=== PATIENT | female | born 1975 | race Caucasian/White ===

== ENCOUNTER 2017-11-17 19:14 | Emergency (ER) | payer MEDICAID ==
[~2017-11-17] VITALS: Ht 157.5 cm; Wt 204.1 kg
[~2017-11-17 19:14] MED LIST: AZIT250T PO; CEPH-568 PO; FAMO20TA98 PO; IBUP-1969 PO; IPRA3AMP9 INH; LOVI40 SQ; RANI-362 PO
[2017-11-17 19:22] VITALS: BP_SYST 166
[2017-11-17 20:19] LABS: BASOPHILS % (AUTO) 0.5 % (0.0-2.0); EOSINOPHILS # (AUTO) 0.2 K/uL (0.0-0.4); EOSINOPHILS % (AUTO) 2.1 % (0.0-4.0); HEMATOCRIT 37.9 % (36-48); HEMOGLOBIN 12.6 g/dL (12.0-16.0); LYMPHOCYTES # (AUTO) 2.3 K/uL (1.0-5.5); LYMPHOCYTES % (AUTO) 27.6 % (20.5-51.5); MEAN CORPUSCULAR HEMOGLOBIN 29 pg (27-31); MEAN CORPUSCULAR HGB CONC 33 % (32-36); MEAN CORPUSCULAR VOLUME 88 fL (79.0-98.0); MONOCYTES # (AUTO) 0.5 K/uL (0.0-1.0); MONOCYTES % (AUTO) 5.7 % (1.7-9.3); NEUTROPHILS # (AUTO) 5.2 K/uL (1.8-7.7); NEUTROPHILS % (AUTO) 64.1 % (40.0-70.0); PLATELET COUNT (AUTO) 299 K/uL (130-430); RED CELL DISTRIBUTION WIDTH 13.9 % (9.0-15.0); WHITE BLOOD COUNT (AUTO) 8.2 K/uL (4.8-10.8)
[2017-11-17 20:28] LABS: CALCIUM 8.8 mg/dL (8.4-11.0); CREATININE 0.72 mg/dL (0.55-1.30)
[2017-11-17 20:30] LABS: ALBUMIN 2.6 g/dL (3.4-4.8); TOTAL BILIRUBIN 0.2 mg/dL (0.0-1.0)
[2017-11-17] MEDS ORDERED: cefTRIAXone 1 GM IVPB PREMIX 50 ML IV ONE (21:15)
[2017-11-17] MEDS ORDERED: HYDROcodone/ACETAMIN 5-325 MG TAB (NORCO/ VICODIN) PO ONE (21:15)
[2017-11-17 21:53] VITALS: BP_SYST 153
== END 2017-11-17 21:49 | disposition home or self-care (01) ==
LOC: SED 19:14
DX: L03.116 Cellulitis of left lower limb (principal); I10 Essential (primary) hypertension; J44.9 Chronic obstructive pulmonary disease, unspecified; Z79.899 Other long term (current) drug therapy
CPT/HCPCS: 36415; 80053; 85025; 87040; 93005; 96365; 99285; J0696

== ENCOUNTER 2017-12-01 13:32 | Emergency (ER) | payer MEDICAID ==
[~2017-12-01] VITALS: Ht 157.5 cm; Wt 204.1 kg
[2017-12-01 14:00] VITALS: BP_SYST 151
[2017-12-01] MEDS ORDERED: MORPHINE 4 MG/ML INJ. SYRINGE IM ONE (15:30)
[2017-12-01 22:53] VITALS: BP_SYST 146
== END 2017-12-01 22:53 | disposition home or self-care (01) ==
LOC: SED 13:32
DX: M79.605 Pain in left leg (principal); E66.01 Morbid (severe) obesity due to excess calories; J44.9 Chronic obstructive pulmonary disease, unspecified; K21.9 Gastro-esophageal reflux disease without esophagitis; Z68.45 Body mass index [BMI] 70 or greater, adult; Z79.899 Other long term (current) drug therapy
CPT/HCPCS: 96372; 99283; J2270

== ENCOUNTER 2018-09-23 17:15 | Emergency (ER) | payer MEDICAID ==
[~2018-09-23] VITALS: Ht 157.5 cm; Wt 204.1 kg
[~2018-09-23 17:15] MED LIST changes: -AZIT250T PO; +FAMO-132 PO; -FAMO20TA98 PO; +FURO-149 PO; +POTA10TA15 PO; +PRED20TA PO
[2018-09-23 17:25] VITALS: BP_SYST 113
--- NOTE | 2018-09-23 17:25 | NUR ---
Patient to ER bed 7 to gown for evaluation. Side rails up. Assumed care.
--- NOTE | 2018-09-23 17:25 | NUR ---
Patient arrived via POV, with mother, AAOx4, and ambulatory with weak gait. Patient uses wheelchair for mobility. Patient c/c of shortness of breath, bilateral leg apin, and bilateral feet and heel pain. Patient states history of COPD, Asthma, Bilateral DVT, Cellulitis, DM (no medications taken), and she is a smoker of 1/2 pack/day. Patient denies fever, and vomiting. Positive for diarrhea, nausea, and dizziness. Patient states she is homeless and has been staying at [facility] temporarily, but has ran out of money and she is concerned regarding chcf. Patient states LMP was 08/29. Patient placed in gown and on cardiac cath technician. Will continue to follow up and monitor.
--- NOTE | 2018-09-23 17:27 | NUR ---
ER at bedside examining patient.
[2018-09-23] MEDS ORDERED: LEVOFLOXACIN 500 MG/D5W 100 ML IV ONE (17:45)
[2018-09-23] MEDS ORDERED: ALBUTEROL SULFATE 0.083% 2.5 MG/3 ML VIAL.NEB INH ONE (17:45)
[2018-09-23 18:26] LABS: BILIRUBIN,URINE NEGATIVE (NEGATIVE); BLOOD, URINE NEGATIVE (NEGATIVE); CLARITY/URINE HAZY (CLEAR); COLOR,URINE YELLOW (YELLOW); GLUCOSE,URINE NEGATIVE (NEGATIVE); KETONES,URINE NEGATIVE (NEGATIVE); NITRITE, URINE POSITIVE (NEGATIVE); PROTEIN URINE TRACE (NEGATIVE); UROBILINOGEN,URINE 0.2 (0.2-1.0)
[2018-09-23 18:32] LABS: LEUKOCYTE ESTERASE ,URINE 1+ (NEGATIVE)
[2018-09-23 18:33] LABS: BACTERIA,URINE MANY /HPF (None Seen); RBC,URINE NONE SEEN /HPF (0-3)
[2018-09-23 18:34] LABS: MUCUS,URINE None Seen /LPF (None Seen)
[2018-09-23] MEDS ORDERED: cefTRIAXone 1 GM VIAL IM ONE (19:30)
--- NOTE | 2018-09-23 19:55 | NUR ---
SHAWNEE Hess at bedside examining patient.
[2018-09-23 20:00] LABS: HEMATOCRIT 44.3 % (36-48); HEMOGLOBIN 14.5 g/dL (12.0-16.0); MEAN CORPUSCULAR VOLUME 90 fL (79.0-98.0); RED BLOOD CELL COUNT(AUTO) 4.91 MIL/uL (4.2-6.2); WHITE BLOOD COUNT (AUTO) 9.9 K/uL (4.8-10.8)
[2018-09-23 20:01] LABS: BASOPHILS # (AUTO) 0.1 K/uL (0.0-0.2); BASOPHILS % (AUTO) 0.9 % (0.0-2.0); EOSINOPHILS # (AUTO) 0.1 K/uL (0.0-0.4); EOSINOPHILS % (AUTO) 1.3 % (0.0-4.0); LYMPHOCYTES # (AUTO) 2.6 K/uL (1.0-5.5); LYMPHOCYTES % (AUTO) 26.5 % (20.5-51.5); MEAN CORPUSCULAR HEMOGLOBIN 30 pg (27-31); MEAN CORPUSCULAR HGB CONC 33 % (32-36); MONOCYTES # (AUTO) 0.6 K/uL (0.0-1.0); MONOCYTES % (AUTO) 6.4 % (1.7-9.3); NEUTROPHILS # (AUTO) 6.4 K/uL (1.8-7.7); NEUTROPHILS % (AUTO) 64.9 % (40.0-70.0); PLATELET COUNT (AUTO) 279 K/uL (130-430); RED CELL DISTRIBUTION WIDTH 13.8 % (9.0-15.0)
[2018-09-23 20:06] LABS: CALCIUM 8.3 mg/dL (8.4-11.0); CREATININE 0.81 mg/dL (0.55-1.30); INR 0.9 (0.8-1.2); POTASSIUM 3.3 mmol/L (3.5-5.1); PROTHROMBIN TIME 9.5 SECS (9.5-12.5)
[2018-09-23 20:11] LABS: ALBUMIN 2.7 g/dL (3.4-4.8); TOTAL BILIRUBIN 0.2 mg/dL (0.0-1.0)
[2018-09-23] MEDS ORDERED: cloNIDine HCL 0.1 MG TABLET PO ONE (20:15)
[2018-09-23 21:50] VITALS: BP_SYST 158
--- NOTE | 2018-09-23 21:50 | NUR ---
Patient given written and verbal discharge instructions and verbalizes understanding. ER MD discussed with patient the results and treatment provided. Patient in stable condition. ID arm band removed. IV catheter removed intact and dressing applied, no active bleeding. Rx of Macrobid given. Patient educated on pain management and to follow up with PMD. Pain Scale 0/10. Opportunity for questions provided and answered. Medication side effect fact sheet provided.
[2018-09-24] MEDS ORDERED: RANI150T8 PO ×2 (10:12→10:19)
[2018-09-24] MEDS ORDERED: IBUP-1970 PO (10:19)
[2018-09-24] MEDS ORDERED: NITR-85 PO (10:19)
== END 2018-09-23 21:50 | disposition home or self-care (01) ==
LOC: SED 17:15
DX: F41.9 Anxiety disorder, unspecified (principal); N39.0 Urinary tract infection, site not specified; R06.02 Shortness of breath; E87.6 Hypokalemia; I10 Essential (primary) hypertension; E66.01 Morbid (severe) obesity due to excess calories; J44.9 Chronic obstructive pulmonary disease, unspecified; K21.9 Gastro-esophageal reflux disease without esophagitis; E11.9 Type 2 diabetes mellitus without complications; Z79.899 Other long term (current) drug therapy; Z68.45 Body mass index [BMI] 70 or greater, adult
CPT/HCPCS: 36415; 71045; 80053; 81000; 83605; 83880; 84484; 85025; 85610; 87040; 87086; 87186; 93005; 93970; 94640; 96365; 96372; 99284; J0696; J1956; J7613; J7030

== ENCOUNTER 2018-10-26 09:30 | Emergency (ER) | payer MEDICAID ==
[~2018-10-26] VITALS: Ht 157.5 cm; Wt 203.7 kg
[2018-10-26 09:30] VITALS: BP_SYST 153
[~2018-10-26 09:30] MED LIST changes: +IBUP-1970 PO; +LEVO250T2 PO; +NITR-85 PO; +RANI150T8 PO
--- NOTE | 2018-10-26 09:30 | NUR ---
BIB CARE, Placed in room 02. Placed on loan auditor, blood pressure machine and pulse oximeter. To gown for exam. Side rails up. Report given to MICHELLE Beck.
--- NOTE | 2018-10-26 09:40 | NUR ---
ER Dr. Gomez at bedside examining patient.
--- NOTE | 2018-10-26 10:05 | NUR ---
Patient is awake, alert, and oriented x4. Patient is complaining of swollen legs since yesterday. Patient presents with bilateral lower edema. Patient reports a history of COPD, osteoarthritis, edema, DVT, CHF, cellulitis, severe sleep apnea, asthma, DM.
[2018-10-26 10:40] LABS: HEMATOCRIT 43.8 % (36-48); HEMOGLOBIN 13.9 g/dL (12.0-16.0); MEAN CORPUSCULAR HEMOGLOBIN 29 pg (27-31); MEAN CORPUSCULAR HGB CONC 32 % (32-36); MEAN CORPUSCULAR VOLUME 91 fL (79.0-98.0); PLATELET COUNT (AUTO) 267 K/uL (130-430); RED CELL DISTRIBUTION WIDTH 47.7 % (9.0-15.0); WHITE BLOOD COUNT (AUTO) 8.4 K/uL (4.8-10.8)
[2018-10-26 10:41] LABS: BASOPHILS % (AUTO) 0.3 % (0.0-2.0); EOSINOPHILS # (AUTO) 0.1 K/uL (0.0-0.4); EOSINOPHILS % (AUTO) 1.3 % (0.0-4.0); LYMPHOCYTES # (AUTO) 2.1 K/uL (1.0-5.5); LYMPHOCYTES % (AUTO) 24.5 % (20.5-51.5); MONOCYTES # (AUTO) 0.3 K/uL (0.0-1.0); MONOCYTES % (AUTO) 4.1 % (1.7-9.3); NEUTROPHILS # (AUTO) 5.9 K/uL (1.8-7.7); NEUTROPHILS % (AUTO) 69.8 % (40.0-70.0)
[2018-10-26 10:46] LABS: ANION GAP 2 (5-15); CHLORIDE 104 mmol/L (98-107); CREATININE 0.78 mg/dL (0.55-1.30); GLUCOSE 178 mg/dL (70-99); POTASSIUM 4.1 mmol/L (3.5-5.1); SODIUM SERUM 138 mmol/L (136-145); UREA NITROGEN, BLOOD 13 mg/dL (8-21)
[2018-10-26 10:47] LABS: INR 0.9 (0.8-1.2); PROTHROMBIN TIME 9.6 SECS (9.5-12.5)
[2018-10-26 10:49] LABS: GFR AFRICAN AMERICAN 105 mL/min (>90)
[2018-10-26 11:03] LABS: ALANINE AMINOTRANSFERASE 24 U/L (12-78); ALBUMIN 2.7 g/dL (3.4-4.8); ASPARTATE AMINOTRANSFERASE 16 U/L (10-37); FREE T4 (FREE THYROXINE) 0.7 ng/dL (0.6-1.6); TOTAL BILIRUBIN 0.3 mg/dL (0.0-1.0)
[2018-10-26 11:06] LABS: ALCOHOL, BLOOD < 3 mg/dL (<10)
[2018-10-26 13:32] VITALS: BP_SYST 152
[2018-10-26 13:43] LABS: BILIRUBIN,URINE NEGATIVE (NEGATIVE); BLOOD, URINE NEGATIVE (NEGATIVE); CLARITY/URINE CLEAR (CLEAR); COLOR,URINE YELLOW (YELLOW); GLUCOSE,URINE NEGATIVE (NEGATIVE); KETONES,URINE NEGATIVE (NEGATIVE); LEUKOCYTE ESTERASE ,URINE NEGATIVE (NEGATIVE); NITRITE, URINE NEGATIVE (NEGATIVE); PROTEIN URINE NEGATIVE (NEGATIVE); UROBILINOGEN,URINE 0.2 (0.2-1.0)
[2018-10-26 13:52] LABS: BARBITURATE, URINE NEGATIVE (NEG <=200); BENZODIAZEPINE, URINE NEGATIVE (NEG <=150); CANNABINOID, URINE NEGATIVE (NEG <=50); COCAINE, URINE NEGATIVE (NEG <=150); METHAMPHETAMINES SCREEN,URINE NEGATIVE (NEG <=500); OPIATE, URINE NEGATIVE (NEG <=100); PHENCYCLIDINE SCREEN,URINE NEGATIVE (NEG <=25); UR TRICYCLIC ANTIDEPRESSANTS NEGATIVE (NEG <=300); URINE AMPHETAMINE NEGATIVE (NEG <=500); URINE METHADONE NEGATIVE (NEG <=200); URINE OXYCODONE SCREEN NEGATIVE (NEG <=100); URINE PROPOXYPHENE SCREEN NEGATIVE (NEG <=300)
--- NOTE | 2018-10-26 14:10 | NUR ---
Saige EDITOR PRODUCER asked patient to keep down her phone conversation as she was yelling and cursing to her ex-. Was heard saying, "You're not my fucking anymore." After being asked to keep it down patient stated Saige was a "conceited face."
--- NOTE | 2018-10-26 14:16 | NUR ---
Patient started cussing. Stating she is leaving without discharge paperwork. Yelled, "Thanks for the hitesh prescription doctor!" Informed her that we were waiting on paper work, she stated she was leaving without anything, "as usual." Patient refused to let me remove her armband stating, "Don't fucking touch me!" Also stating, "I know the director! He's my personal friend. I'm going to call him!" Patient left the ER without any paperwork and her armband.
== END 2018-10-26 14:16 | disposition home or self-care (01) ==
LOC: SED 09:30
DX: L03.116 Cellulitis of left lower limb (principal); L03.115 Cellulitis of right lower limb; E66.01 Morbid (severe) obesity due to excess calories; J45.909 Unspecified asthma, uncomplicated; E11.9 Type 2 diabetes mellitus without complications; I10 Essential (primary) hypertension; J44.9 Chronic obstructive pulmonary disease, unspecified; F17.210 Nicotine dependence, cigarettes, uncomplicated; Z79.899 Other long term (current) drug therapy; Z68.45 Body mass index [BMI] 70 or greater, adult
CPT/HCPCS: 36415; 71045; 80053; 80307; 81003; 82140; 83605; 83880; 84439; 84484; 85025; 85610; 87040; 93005; 93970; 99284; G0482

== ENCOUNTER 2019-02-09 13:07 | Emergency (ER) | payer MEDICAID ==
[~2019-02-09] VITALS: Ht 160 cm; Wt 199.1 kg
[2019-02-09 13:13] VITALS: BP_SYST 153
--- NOTE | 2019-02-09 13:18 | NUR ---
Patient triaged and placed in waiting room. Patient appears in no acute distress at this time. Accompanied by self, awaiting available bed, and MD notified of need for MSE.
--- NOTE | 2019-02-09 13:45 | NUR ---
PT SCREAMING LOUDLY ON THE PHONE THAT SHE DOESN NOT WANT TO WAIT, EXPLAINED TO PT THAT WE DO NOT HAVE ANY BEDS. PT YELLING, NO DISTRESS NOTED. SPEAKING/YELLING FULL SENTENCES.
--- NOTE | 2019-02-09 13:52 | NUR ---
PT LEFT WITHOUT BEING SEEN BY AN MD
--- NOTE | 2019-02-09 13:58 | NUR ---
CALL RECEIVED BY MOTHER OF PT AND MOTHER STATES THAT PT NEEDS TO BE BROUGHT INTO THE HOSPITAL RIGHT AWAY, EXPLAINED TO MOTHER THAT PT LEFT ON HER OWN WILL AND I CAN NOT BRING HER BACK IN THE HOSPITAL. EXPLAINED TO MOTHER THAT I DO NOT HAVE AN OPEN BED AT THIS TIME AND THAT PT WAS SCREAMING LOUDLY, IN NO DISTRESS AT THIS TIME. MOTHER UNDERSTOOD AND WANTED TO KNOW WHY WE BROUGHT BACK PATIENTS BEFORE HER DAUGHTER, EXPLAINED TO MOTHER THAT I WILL NOT BE SHARING ANY INFORMATION RE OTHER PTS DX OR ISSUES DUE TO HIPPA VIOLATIONS, MOTHER STATES SHE UNDERSTANDS AND WILL TALK WITH HER DAUGHTER.
== END 2019-02-09 13:52 | disposition left against medical advice (07) ==
LOC: SED 13:07
DX: R06.00 Dyspnea, unspecified (principal); R06.02 Shortness of breath; M79.662 Pain in left lower leg; M79.661 Pain in right lower leg; Z53.21 Procedure and treatment not carried out due to patient leaving prior to being seen by health care provider

== ENCOUNTER 2023-01-05 16:29 | Inpatient (IN) | payer OTHER, MEDICAID ==
[~2023-01-05] VITALS: Ht 157.5 cm; Wt 177.1 kg
--- NOTE | 2023-01-05 16:33 | NUR ---
Placed in room 01 . Placed on box toe stitcher, blood pressure machine and pulse oximeter. To gown for exam. Side rails up. Report given to Berenice .
[2023-01-05 16:35] VITALS: BP_SYST 127
--- NOTE | 2023-01-05 16:35 | NUR ---
RECEIVED PT FROM MICHELLE AWAD. PT VIJI AYON FOR C/O SOB. PT ON R/A AT 96%. NO COUGH OR SOB NOTED. PT DESATURATES WITH ACTIVITY. PT NOW PLACED ON N/C AT 2LPM. O2 SAT. 94% AT THIS TIME. PT HAS HX OF COPD, USED HOME O2 OVER A YEAR AGO. ZELALEM 20 PLACED IN FIELD, FLUSHED AND PATENT. PT IS AAOX4. C/O NAUSEA. DISTAL PULSES NORMAL. SKIN INTACT. PT USED BEDSIDE COMMODE, URINE OBTAINED AND TAKEN TO LAB. PT PLACED ON MONITOR. SIDERAILS UP X2, DENIES PAIN.
--- NOTE | 2023-01-05 16:59 | NUR ---
DR. VACA AT BEDSIDE TO ASSESS PT.
[2023-01-05] MEDS ORDERED: IPRATROPIUM/ALBUTEROL SULFATE 3 ML AMPUL.NEB (DUONEB) INH ONE (17:15)
[2023-01-05 17:32] LABS: BASOPHILS # (AUTO) 0.1 K/uL (0.0-0.2); BASOPHILS % (AUTO) 0.4 % (0.0-2.0); EOSINOPHILS % (AUTO) 0.3 % (0.0-4.0); HEMATOCRIT 48.4 % (36-48); HEMOGLOBIN 15.7 g/dL (12.0-16.0); MEAN CORPUSCULAR HEMOGLOBIN 28 pg (27-31); MEAN CORPUSCULAR HGB CONC 33 % (32-36); MEAN CORPUSCULAR VOLUME 87 fL (79.0-98.0); MONOCYTES # (AUTO) 0.4 K/uL (0.0-1.0); MONOCYTES % (AUTO) 2.8 % (1.7-9.3); NEUTROPHILS # (AUTO) 13.3 K/uL (1.8-7.7); NEUTROPHILS % (AUTO) 89.5 % (40.0-70.0); PLATELET COUNT (AUTO) 240 K/uL (130-430); RED BLOOD CELL COUNT(AUTO) 5.56 MIL/uL (4.2-6.2); RED CELL DISTRIBUTION WIDTH 14.6 % (9.0-15.0); WHITE BLOOD COUNT (AUTO) 14.9 K/uL (4.8-10.8)
--- NOTE | 2023-01-05 17:32 | NUR ---
PT'S BREATHING TX COMPLETED.
[2023-01-05 17:46] LABS: ANION GAP 7 (5-15); CALCIUM 9.4 mg/dL (8.4-11.0); CHLORIDE 98 mmol/L (98-107); CREATININE 1.01 mg/dL (0.55-1.30); GFR AFRICAN AMERICAN 76 mL/min (>90); GLUCOSE 222 mg/dL (70-99); UREA NITROGEN, BLOOD 20 mg/dL (8-21)
[2023-01-05 17:53] LABS: ALANINE AMINOTRANSFERASE 20 U/L (12-78); ALBUMIN 3.2 g/dL (3.4-4.8); ASPARTATE AMINOTRANSFERASE 16 U/L (10-37); TOTAL BILIRUBIN 0.5 mg/dL (0.0-1.0)
[2023-01-05 18:07] LABS: PROTHROMBIN TIME 10.5 SECS (9.5-12.5)
[2023-01-05 18:13] LABS: BILIRUBIN,URINE NEGATIVE (NEGATIVE); BLOOD, URINE NEGATIVE (NEGATIVE); CLARITY/URINE CLEAR (CLEAR); COLOR,URINE YELLOW (YELLOW); GLUCOSE,URINE TRACE (NEGATIVE); KETONES,URINE NEGATIVE (NEGATIVE); LEUKOCYTE ESTERASE ,URINE TRACE (NEGATIVE); NITRITE, URINE NEGATIVE (NEGATIVE); PROTEIN URINE NEGATIVE (NEGATIVE); UROBILINOGEN,URINE 0.2 (0.2-1.0)
[2023-01-05 18:25] LABS: BACTERIA,URINE RARE /HPF (None Seen); RBC,URINE 0-3 /HPF (0-3); WBC,URINE 0-3 /HPF (0-3)
[2023-01-05] MEDS ORDERED: methylPREDNISolone SOD SUCC/PF 62.5 MG/ML VIAL IVP ONE (18:30)
--- NOTE | 2023-01-05 18:52 | NUR ---
URINE, COVID, FLU OBTAINED AND TAKEN TO LAB.
--- NOTE | 2023-01-05 18:53 | NUR ---
SOLUMEDROL 125MG IVP GIVEN.
--- NOTE | 2023-01-05 19:13 | NUR ---
ENDORSED PT TO MICHELLE CALL. ALL QUESTIONS AND CONCERNS ADDRESSED.
--- NOTE | 2023-01-05 19:31 | NUR ---
FIRST CONTACT WITH PT. ASSESSMENT COMPLETED. AWAITING ADDITIONAL EVAL AND ORDERS.
[2023-01-05] MEDS ORDERED: AZITHROMYCIN 500 MG in NS 250 ML IV ONE (19:45)
[2023-01-05] MEDS ORDERED: NACL 0.9% 1,000 ML IV ONE (19:45)
[2023-01-05] MEDS ORDERED: AZITHROMYCIN 500 MG/VIAL (ZITHROMAX) IV ONE ×2 (19:45→19:46)
[2023-01-05] MEDS ORDERED: cefTRIAXone 1 GM VIAL ONE (19:45)
[2023-01-05] MEDS ORDERED: guaiFENesin/DEXTROMETHORPHAN 10 ML UDC PO ONE (19:45)
[2023-01-05] MEDS ORDERED: cefTRIAXone 1 GM in D5W 50 ML IV ONE (19:45)
--- NOTE | 2023-01-05 20:53 | NUR ---
Patient will be admitted to care of [facility] . Admitted to TELE unit. Will go to room 110B . Belongings list completed. Complete and up to date summary report printed. SBAR report to be given at bedside TO MICHELLE VILLALOBOS with opportunity for questions.
--- NOTE | 2023-01-05 21:30 | NUR ---
Pt admitted to tele from ER. Pt is aox4, ambulatory with max assist, as she huses an assitive device at home to get around. Pt VSS, lungs are rhonchi at base. bowel sounds present last BM was 01/05. skin intact, denies pain, pt states she is hungry, instructed for her child 16yo to bring her food, BSC placed at bedside. pt has breathing treatments, but refused initial one at 2200. pt is non-compliant with breathing treatments. bed locked in the lowest position with call light in reach. Will continue to monitor pt.
--- NOTE | 2023-01-05 21:50 | NUR ---
Paged Dr. Quezada Nam
[2023-01-05 21:55] VITALS: BP_SYST 125
[2023-01-05] MEDS ORDERED: NALOXONE HCL 0.4 MG/ML AMP (NARCAN) IVP PRN ×2 (22:15)
[2023-01-05] MEDS ORDERED: ONDANSETRON HCL 4 MG/2 ML VIAL IVP PRN (22:15)
[2023-01-05] MEDS ORDERED: ACETAMINOPHEN 325 MG TABLET PO PRN (22:15)
[2023-01-05] MEDS ORDERED: HYDROcodone/ACETAMIN 5-325 MG TAB (NORCO/ VICODIN) PO PRN (22:15)
[2023-01-05] MEDS ORDERED: HYDROcodone/ACETAMIN 10-325 MG TAB PO PRN (22:15)
[2023-01-05] MEDS: ALBUTEROL SULFATE 0.083% 2.5 MG/3 ML VIAL.NEB INH SCH (22:57)
[2023-01-05] MEDS: IPRATROPIUM BROM 0.5 MG/2.5 ML VIAL.NEB (ATROVENT) INH SCH (22:57)
--- NOTE | 2023-01-05 23:10 | NUR ---
CONSULTATION PAGED/CALLED Reason for Consultation: Leukocytosis/pneumonia Person Who was Notified: exchange Consulting Physician: Thiago Mishra Svp Digital Sales Specialty: ID Ordering Physician: Dr. Dr. Pilar Browning
[2023-01-05 23:29] VITALS: BP_SYST 125
--- NOTE | 2023-01-06 02:51 | NUR ---
Consultation Paged Reason for Consultation: COPD, PNEUMONIA Was consult called: Y Person who was notified: Kiran Consulting Physician: Dr. Crawford Ordering Physician: Nam Lainez
[2023-01-06] MEDS: IPRATROPIUM BROM 0.5 MG/2.5 ML VIAL.NEB (ATROVENT) INH SCH ×5 (03:00→19:25)
[2023-01-06] MEDS: ALBUTEROL SULFATE 0.083% 2.5 MG/3 ML VIAL.NEB INH SCH ×5 (03:00→19:25)
[2023-01-06 05:09] LABS: BASOPHILS % (AUTO) 0.2 % (0.0-2.0); HEMATOCRIT 47.1 % (36-48); HEMOGLOBIN 15.1 g/dL (12.0-16.0); LYMPHOCYTES # (AUTO) 0.9 K/uL (1.0-5.5); LYMPHOCYTES % (AUTO) 5.1 % (20.5-51.5); MEAN CORPUSCULAR HEMOGLOBIN 28 pg (27-31); MEAN CORPUSCULAR HGB CONC 32 % (32-36); MEAN CORPUSCULAR VOLUME 88 fL (79.0-98.0); MONOCYTES # (AUTO) 0.1 K/uL (0.0-1.0); MONOCYTES % (AUTO) 0.5 % (1.7-9.3); NEUTROPHILS # (AUTO) 16.9 K/uL (1.8-7.7); NEUTROPHILS % (AUTO) 94.2 % (40.0-70.0); PLATELET COUNT (AUTO) 233 K/uL (130-430); RED BLOOD CELL COUNT(AUTO) 5.36 MIL/uL (4.2-6.2); RED CELL DISTRIBUTION WIDTH 14.2 % (9.0-15.0); WHITE BLOOD COUNT (AUTO) 17.9 K/uL (4.8-10.8)
[2023-01-06] MEDS: NORMAL SALINE 5 ML DISP.SYRIN IVF SCH ×3 (06:00→22:39)
[2023-01-06 06:09] LABS: ALBUMIN 2.9 g/dL (3.4-4.8); CALCIUM 8.7 mg/dL (8.4-11.0); CREATININE 1.22 mg/dL (0.55-1.30); PHOSPHORUS 6.1 mg/dL (2.7-4.5); TOTAL BILIRUBIN 0.4 mg/dL (0.0-1.0)
--- NOTE | 2023-01-06 07:35 | NUR ---
OPENING NOTE Patient laying in bed. A/O x4, [place] speaking. Breathing is even and unlabored on RA. No pain, no SOB, no distress noted. Patient has IV to Right upper bracial arm patent on SL. Patient able to get up to use restroom. Patient is on Cardiac diet and able to feed herself. All needs met at this time. Bed is locked in lowest position. Call light within reach. Will continue with POC.
[2023-01-06 08:13] VITALS: BP_SYST 95
[2023-01-06] MEDS ORDERED: FUROSEMIDE 40 MG TABLET PO SCH (09:00)
[2023-01-06] MEDS: METHYLPREDNISOLONE SOD SUCC 40 MG/ML VIAL IVP SCH ×2 (09:03→23:26)
[2023-01-06] MEDS: POTASSIUM CHLORIDE 10 MEQ TAB.PRT.SR PO SCH (09:08)
[2023-01-06] MEDS: FAMOTIDINE 20 MG TABLET PO SCH ×2 (09:08→21:00)
[2023-01-06] MEDS: ENOXAPARIN SODIUM 40 MG/0.4 ML SYRINGE SQ SCH (09:13)
[2023-01-06] MEDS: INSULIN REGULAR, HUMAN 100 UNITS/ML, 3 ML VIAL (humuLIN R) SUBCUT PRN ×3 (10:23→17:12)
--- NOTE | 2023-01-06 10:43 | NUR ---
CONSULTATION: REASON FOR CONSULT: CHF CONSULTING PHYSICIAN: Sunshine PANIAGUA ORDERED BY: Marah PANIAGUA DR IS AWARE OF CONSULT THROUGH TEXT MESSAGE
--- NOTE | 2023-01-06 12:15 | NUR ---
ROUNDS Patient laying in bed, resting. Breathing is even and unlabored on RA. No pain, no SOB, no distress noted. All needs met at this time. Bed is locked in lowest position. Call light within reach. Will continue with POC.
[2023-01-06 12:18] VITALS: BP_SYST 105
--- NOTE | 2023-01-06 13:00 | NUR ---
MD DUANE Little paged regarding WBC/ Antibiotic treatment. Awaiting call back.
[2023-01-06 16:43] VITALS: BP_SYST 97
--- NOTE | 2023-01-06 17:00 | NUR ---
MD Sidney Little paged regarding WBC/ Antibiotics. MD Quezada stated to just wait for MD Little to consult and evaluate patient regarding antibiotic treatment at this time.
--- NOTE | 2023-01-06 17:05 | NUR ---
BLOOD SUGAR Reported to Elevated BS of patient. MD okayed to give 12 units of insulin plus gave new orders for metformin and actos. Orders carried out.
[2023-01-06] MEDS ORDERED: PIOGLITAZONE HCL 15 MG TABLET PO ONE (17:15)
[2023-01-06] MEDS ORDERED: metFORMIN HCL 500 MG TABLET PO ONE (17:15)
[2023-01-06] MEDS: FUROSEMIDE 40 MG/4 ML VIAL IVP SCH (17:28)
--- NOTE | 2023-01-06 18:25 | NUR ---
MD DUANE Little called back and gave new orders for antibiotics. Orders carried out.
--- NOTE | 2023-01-06 18:47 | NUR ---
CLOSING NOTE Patient laying in bed, resting. A/O x4, Burkinan speaking. Breathing is even and unlabored on RA. No pain, no SOB, no distress noted. Patient has IV to Right upper brachial arm patent on SL. Patient able to get up to use restroom. Patient is on CCHO diet and able to feed herself. All needs met at this time. Bed is locked in lowest position. Call light within reach. Will endorse to nightshift nurse.
[2023-01-06 19:00] VITALS: BP_SYST 143
[2023-01-06 20:00] VITALS: BP_SYST 114
--- NOTE | 2023-01-06 21:30 | NUR ---
FINGERSTICK BLLOD SUGAR 558 DR PANIAGUA NOTIFIED LANTUS 20 UNITS HS ORDERED
[2023-01-06] MEDS ORDERED: INSULIN GLARGINE 100 UNITS/ML, 10 ML VIAL SUBCUT SCH (22:00)
[2023-01-07] VITALS (13 sets, daily range): BP systolic 125–165
[2023-01-07 05:16] LABS: HEMATOCRIT 45.6 % (36-48); HEMOGLOBIN 14.4 g/dL (12.0-16.0); LYMPHOCYTES # (AUTO) 0.8 K/uL (1.0-5.5); LYMPHOCYTES % (AUTO) 7.1 % (20.5-51.5); MEAN CORPUSCULAR HEMOGLOBIN 28 pg (27-31); MEAN CORPUSCULAR HGB CONC 32 % (32-36); MEAN CORPUSCULAR VOLUME 87 fL (79.0-98.0); MONOCYTES # (AUTO) 0.2 K/uL (0.0-1.0); MONOCYTES % (AUTO) 1.6 % (1.7-9.3); NEUTROPHILS # (AUTO) 10.3 K/uL (1.8-7.7); NEUTROPHILS % (AUTO) 91.3 % (40.0-70.0); PLATELET COUNT (AUTO) 260 K/uL (130-430); RED BLOOD CELL COUNT(AUTO) 5.24 MIL/uL (4.2-6.2); RED CELL DISTRIBUTION WIDTH 14.4 % (9.0-15.0); WHITE BLOOD COUNT (AUTO) 11.3 K/uL (4.8-10.8)
[2023-01-07 05:49] LABS: CALCIUM 8.5 mg/dL (8.4-11.0); CREATININE 1.47 mg/dL (0.55-1.30)
[2023-01-07] MEDS: NORMAL SALINE 5 ML DISP.SYRIN IVF SCH ×3 (06:13→21:38)
--- NOTE | 2023-01-07 06:30 | NUR ---
HIGH ALERT NOTE: Called Dr. cruz-sayed back at identified within the medical roster to verify physician authenticity.pt.prsented elevate blood glucsoe.-sayed ordered. nph:15-u sq x1.
[2023-01-07] MEDS: FUROSEMIDE 40 MG/4 ML VIAL IVP SCH ×2 (06:31→18:39)
[2023-01-07] MEDS: INSULIN REGULAR, HUMAN 100 UNITS/ML, 3 ML VIAL (humuLIN R) SUBCUT PRN ×2 (06:36→11:25)
--- NOTE | 2023-01-07 07:00 | NUR ---
OPENING NOTE Patient laying in bed. A/O x4, Cypriot speaking. Breathing is even and unlabored on RA. No pain, no SOB, no distress noted. Patient has IV to Right upper bracial arm patent on SL. Patient able to get up to use restroom. Patient is on Cardiac diet and able to feed herself. All needs met at this time. Bed is locked in lowest position. Call light within reach. Will continue with POC.
--- NOTE | 2023-01-07 07:16 | NUR ---
CONSULTATION PAGED/CALLED Reason for Consultation: [] HYPERGLYCEMIA Person Who was Notified: [] Erin SHIPMAN Consulting Physician: [] Erin SHIPMAN Loader Operator/Ground Leader Specialty: [] ENDOCRINE Ordering Physician: [] DR Marah PANIAGUA
--- NOTE | 2023-01-07 07:17 | NUR ---
CALLED DR BULL SAYED, ENDOCRINE FOR BS OF 446.
[2023-01-07] MEDS: IPRATROPIUM BROM 0.5 MG/2.5 ML VIAL.NEB (ATROVENT) INH SCH ×5 (07:26→22:53)
[2023-01-07] MEDS: ALBUTEROL SULFATE 0.083% 2.5 MG/3 ML VIAL.NEB INH SCH ×5 (07:26→22:53)
[2023-01-07] MEDS ORDERED: INSULIN NPH 100 UNITS/ML 10 ML VIAL SUBCUT ONE (07:30)
[2023-01-07] MEDS ORDERED: metFORMIN HCL 500 MG TABLET PO SCH (08:00)
[2023-01-07] MEDS: ENOXAPARIN SODIUM 40 MG/0.4 ML SYRINGE SQ SCH (08:53)
[2023-01-07] MEDS: POTASSIUM CHLORIDE 10 MEQ TAB.PRT.SR PO SCH (08:53)
[2023-01-07] MEDS: FAMOTIDINE 20 MG TABLET PO SCH ×2 (08:54→21:38)
[2023-01-07] MEDS ORDERED: INSULIN NPH 100 UNITS/ML 10 ML VIAL SUBCUT SCH (09:00)
[2023-01-07] MEDS ORDERED: PIOGLITAZONE HCL 15 MG TABLET PO SCH (09:00)
--- NOTE | 2023-01-07 09:31 | NUR ---
MD Pilar AGUILAR came to speak to me regarding putting patient on 1600 ml fluid restriction. Orders carried out.
[2023-01-07] MEDS: METHYLPREDNISOLONE SOD SUCC 40 MG/ML VIAL IVP SCH ×2 (09:44→21:37)
--- NOTE | 2023-01-07 09:49 | NUR ---
Fluid Restriction Patient was informed of the Fluid Restriction of 1600 ml, patient became very upset and stated that she can not live on that little bit of water because she is always thirsty and she will have her family bring water. Notified Sunshine Syed and he came in to talk to her and educate her on the risks of not following the fluid restrictions. Patient started cussing and saying that we are the reason she is fat because we are flushing her with NS. then told her to please use respectful language. Patient then stayed quiet after apologizing and was informed that fluid restriction is to continue.
--- NOTE | 2023-01-07 10:12 | NUR ---
Patient stated she is upset with me because I "snitched" her to the channel specialist. I went to talk to her to ask her if she wants me to be her nurse and refused to speak to me. I stated if she does not want me to be her nurse we can arrange that. Still no response from the patient. Reported to Charge Nurse.
--- NOTE | 2023-01-07 10:47 | NUR ---
CONSULT CALLED; Y REASONING; PROMISE SPOKE WITH; FORTUNATO NUMBER CALLED; [phone] REQUESTING; JOSE MARIA MO
--- NOTE | 2023-01-07 11:34 | NUR ---
MD Varela Spoke with regarding elevated blood sugar and stated to give another 10 units of regular insulin then recheck her sugar in 3 hours and if it is still over 400 to call MD back. Orders carried out.
[2023-01-07] MEDS ORDERED: INSULIN NPH/REGULAR 70-30, 100 UNITS/ML, 3 ML VIAL SUBCUT ONE (11:45)
[2023-01-07] MEDS ORDERED: INSULIN REGULAR, HUMAN 100 UNITS/ML, 3 ML VIAL SUBCUT ONE (11:45)
--- NOTE | 2023-01-07 13:43 | NUR ---
ROUND Patients was visit by family, patient was eating fruits, educate patients that fruits are high in sugar.
--- NOTE | 2023-01-07 14:45 | NUR ---
Placed a call to MD Daugherty for patient's blood sugar levels. Per MD patient needs to be on an insulin drip and to be transferred to ICU to start on a Bolus 20 units then to run 4 units and hour. MD Daugherty asked to consult with MD Quezada to see for the transfer. Awaiting a call back.
[2023-01-07] MEDS ORDERED: COMMUNICATION ORDER XX ONE (16:00)
[2023-01-07] MEDS ORDERED: INSULIN REGULAR, HUMAN 10 UNITS/0.1 ML, 3 ML VIAL IVP ONE (16:00)
--- NOTE | 2023-01-07 16:32 | NUR ---
TRANSFER TO ICU Transferred patient to ICU bed 4. Gave report to MICHELLE Lowe. Patients sent with belongings and sister took rest of belongings home. Patient stable when transferred.
[2023-01-07] MEDS ORDERED: INSULIN REGULAR, HUMAN 100 UNITS in NS 99 ML IV PRN ×2 (17:00)
[2023-01-07] MEDS ORDERED: D5W 1,000 ML IV PRN (17:45)
[2023-01-07] MEDS ORDERED: GLUCOSE (DEXTROSE) ORAL GEL -Adults PO PRN (17:45)
[2023-01-07] MEDS ORDERED: DEXTROSE 50% JECT 50 ML DISP.SYRIN IVP PRN (17:45)
--- NOTE | 2023-01-07 19:30 | NUR ---
RECEIVED AWAKE, ALERT AND ORIENTED, ABLE TO GETOOB WITH MINIMAL ASSISST. ON 2 LPM/NC, SATURATION WDL.. DIGITAL PRINTER IS SHOWING NSR, DENIES CHEST PAIN. NS STARTED TKO RATE FOR ANITBIOTICS. IV SITE ON THE RIGHT UPPER ARM. INSULIN DRIP IS INFUSING AT 4 UNITS/HR. ABDOMEN OBESE, VOIDING FREQUENTLY DUE TO LASIX. AFEBRILE.
--- NOTE | 2023-01-07 23:00 | NUR ---
VISITED AND EXAMINED BY DR. SUZI FOSTER.
[2023-01-08] VITALS (10 sets, daily range): BP systolic 134–165
--- NOTE | 2023-01-08 | NUR ---
ACCUCHECK RESULT IS 422 MG/DL, NOTIFIED DR. MANCIA, REGULAR INSULIN 20 UNITS IV BOLUS ORDERED AND INCREASED INSULIN DRIP TO 6 UNITS/HR. WILL RECHECK AFTER 2 HOURS.
[2023-01-08] MEDS ORDERED: INSULIN REGULAR, HUMAN 10 UNITS/0.1 ML, 3 ML VIAL IVP ONE (00:15)
[2023-01-08] MEDS: ALBUTEROL SULFATE 0.083% 2.5 MG/3 ML VIAL.NEB INH SCH ×3 (03:00→11:00)
[2023-01-08] MEDS: IPRATROPIUM BROM 0.5 MG/2.5 ML VIAL.NEB (ATROVENT) INH SCH ×3 (03:00→11:00)
[2023-01-08 04:40] LABS: HEMATOCRIT 46.3 % (36-48); HEMOGLOBIN 15.1 g/dL (12.0-16.0); LYMPHOCYTES # (AUTO) 0.9 K/uL (1.0-5.5); LYMPHOCYTES % (AUTO) 8.5 % (20.5-51.5); MEAN CORPUSCULAR HEMOGLOBIN 28 pg (27-31); MEAN CORPUSCULAR HGB CONC 33 % (32-36); MEAN CORPUSCULAR VOLUME 86 fL (79.0-98.0); MONOCYTES # (AUTO) 0.5 K/uL (0.0-1.0); NEUTROPHILS # (AUTO) 8.8 K/uL (1.8-7.7); NEUTROPHILS % (AUTO) 86.5 % (40.0-70.0); PLATELET COUNT (AUTO) 289 K/uL (130-430); RED BLOOD CELL COUNT(AUTO) 5.37 MIL/uL (4.2-6.2); RED CELL DISTRIBUTION WIDTH 14.4 % (9.0-15.0); WHITE BLOOD COUNT (AUTO) 10.2 K/uL (4.8-10.8)
[2023-01-08 05:20] LABS: ALBUMIN 3.1 g/dL (3.4-4.8); C-REACTIVE PROTEIN QUANT 8.5 mg/dL (0-0.5); CALCIUM 8.7 mg/dL (8.4-11.0); CREATININE 1.17 mg/dL (0.55-1.30); PHOSPHORUS 5.1 mg/dL (2.7-4.5); THYROID STIMULATING HORMONE 0.34 uIu/mL (0.34-4.82); TOTAL BILIRUBIN 0.2 mg/dL (0.0-1.0)
[2023-01-08] MEDS: NORMAL SALINE 5 ML DISP.SYRIN IVF SCH (06:05)
[2023-01-08] MEDS: FUROSEMIDE 40 MG/4 ML VIAL IVP SCH (06:18)
[2023-01-08 07:34] LABS: ERYTHROCYTE SEDIMENTATION RATE 88 MM/HR (0-20)
--- NOTE | 2023-01-08 08:00 | NUR ---
Patient very upset with Fluid & Diet Restrictions ordered as part of therapeutic regimen. Verbalizes that she wants to leave the Hospital Against Medical Advice due to these restrictions. MD Quezada notified of patient's wish to leave AMA. MD Quezada to see patient regarding going AMA.
--- NOTE | 2023-01-08 09:30 | NUR ---
Patient refusing bedside cardiovascular monitoring at this time. She has removed the EKG leads, Pulse Oximetry, and Blood Pressure cables/lines that were applied and refuses to have them reattached. Patient continues to voice plan to leave the hospital AMA.
--- NOTE | 2023-01-08 09:45 | NUR ---
MD Quezada at bedside discussing with patient the risks and potential complications of leaving the hospital AMA. Patient is unhappy with the therapeutic restrictions imposed as a part of the medical regimen stating that she does not need to be on an Insulin Drip and can manage her blood sugar better at home. Despite the counseling otherwise by MD Quezada, patient insists on leaving AMA. Leaving Against Medical Advice paperwork signed by both MD Quezada and the patient and witnessed by multiple RNs.
[2023-01-08] MEDS: POTASSIUM CHLORIDE 10 MEQ TAB.PRT.SR PO SCH (10:14)
[2023-01-08] MEDS: ENOXAPARIN SODIUM 40 MG/0.4 ML SYRINGE SQ SCH (10:14)
[2023-01-08] MEDS: FAMOTIDINE 20 MG TABLET PO SCH (10:14)
[2023-01-08] MEDS: METHYLPREDNISOLONE SOD SUCC 40 MG/ML VIAL IVP SCH (10:14)
--- NOTE | 2023-01-08 10:30 | NUR ---
Patient refusing to wear Nasal Cannula delivering 2L of oxygen despite previous complaints of SOB and dyspnea on exertion. Attempts to persuade patient of the necessity of oxygen therapy are unsuccessful. Patient notified RN that family will be on the way to pick her up as part of her plan to leave AMA.
--- NOTE | 2023-01-08 11:30 | NUR ---
Patient leaving AMA from hospital despite attempts to persuade her of the benefits of the therapeutic medical regimen. Patient escorted via wheelchair to the front entrance with all of her belongings. Patient picked up via private vehicle by her mother and daughter.
== END 2023-01-08 11:30 | disposition left against medical advice (07) | DRG 871 ==
LOC: SED 16:29 → STU 19:55 → SIC 01-07 16:43
PROVIDERS: ADMIT Preventive Medicine Preventive Medicine/Occupational Environmental Medicine; ATTEND Preventive Medicine Preventive Medicine/Occupational Environmental Medicine
DX: A41.9 Sepsis, unspecified organism (principal); J18.9 Pneumonia, unspecified organism; J96.01 Acute respiratory failure with hypoxia; J44.1 Chronic obstructive pulmonary disease with (acute) exacerbation; E87.1 Hypo-osmolality and hyponatremia; L03.115 Cellulitis of right lower limb; L03.116 Cellulitis of left lower limb; N17.9 Acute kidney failure, unspecified; J44.0 Chronic obstructive pulmonary disease with (acute) lower respiratory infection; E44.1 Mild protein-calorie malnutrition; E66.01 Morbid (severe) obesity due to excess calories; K21.9 Gastro-esophageal reflux disease without esophagitis; E88.09 Other disorders of plasma-protein metabolism, not elsewhere classified; G47.33 Obstructive sleep apnea (adult) (pediatric); I48.91 Unspecified atrial fibrillation; E11.65 Type 2 diabetes mellitus with hyperglycemia; Z20.822 Contact with and (suspected) exposure to COVID-19; I11.0 Hypertensive heart disease with heart failure; I50.9 Heart failure, unspecified; E55.9 Vitamin D deficiency, unspecified; Z86.718 Personal history of other venous thrombosis and embolism; Z79.4 Long term (current) use of insulin; Z79.01 Long term (current) use of anticoagulants
CPT/HCPCS: 36415; 71045; 76770; 80048; 80053; 81000; 82306; 82962; 83037; 83605; 83735; 83880; 84100; 84443; 84484; 85025; 85610-TC; 85651-TC; 85730-TC; 86140; 87040; 93005; 93306; 94640; 94760; 96365; 99285; G0378; J0456; J0696; J1030; J1650; J1815; J1940; J2930; J7060; J7613

== ENCOUNTER 2023-08-10 23:15 | Emergency (ER) | payer OTHER, MEDICAID ==
[~2023-08-10] VITALS: Ht 157.5 cm; Wt 161.0 kg
[2023-08-10 23:32] VITALS: BP_SYST 108; PULSE 100; RESP 18; TEMP 97.3; O2SAT 93
[2023-08-11 01:15] LABS: BILIRUBIN,URINE NEGATIVE (NEGATIVE); BLOOD, URINE NEGATIVE (NEGATIVE); COLOR,URINE YELLOW (YELLOW); GLUCOSE,URINE 3+ (NEGATIVE); KETONES,URINE NEGATIVE (NEGATIVE); LEUKOCYTE ESTERASE ,URINE 1+ (NEGATIVE); PH,URINE 6.5 (5.0-8.0); PROTEIN URINE TRACE (NEGATIVE)
[2023-08-11] MEDS ORDERED: PHENAZOPYRIDINE HCL 100 MG TABLET PO ONE (01:15)
[2023-08-11] MEDS ORDERED: LEVOFLOXACIN 250 MG/D5W 50 ML IV ONE (01:30)
[2023-08-11 02:14] LABS: BASOPHILS # (AUTO) 0.1 K/uL (0.0-0.2); BASOPHILS % (AUTO) 0.7 % (0.0-2.0); EOSINOPHILS # (AUTO) 0.1 K/uL (0.0-0.4); HEMATOCRIT 43.5 % (36-48); HEMOGLOBIN 14.5 g/dL (12.0-16.0); LYMPHOCYTES # (AUTO) 3.6 K/uL (1.0-5.5); LYMPHOCYTES % (AUTO) 34.7 % (20.5-51.5); MEAN CORPUSCULAR HEMOGLOBIN 29 pg (27-31); MEAN CORPUSCULAR HGB CONC 33 % (32-36); MEAN CORPUSCULAR VOLUME 88 fL (79.0-98.0); MONOCYTES # (AUTO) 0.7 K/uL (0.0-1.0); MONOCYTES % (AUTO) 6.4 % (1.7-9.3); NEUTROPHILS # (AUTO) 5.9 K/uL (1.8-7.7); NEUTROPHILS % (AUTO) 57.2 % (40.0-70.0); PLATELET COUNT (AUTO) 247 K/uL (130-430); RED BLOOD CELL COUNT(AUTO) 4.97 MIL/uL (4.2-6.2); WHITE BLOOD COUNT (AUTO) 10.3 K/uL (4.8-10.8)
[2023-08-11 02:19] LABS: CALCIUM 9.2 mg/dL (8.4-11.0); CREATININE 1.64 mg/dL (0.55-1.30)
[2023-08-11 02:25] LABS: CLARITY/URINE SLIGHTLY CLOUDY (CLEAR)
[2023-08-11 02:26] LABS: NITRITE, URINE NEGATIVE (NEGATIVE)
[2023-08-11 02:28] LABS: BACTERIA,URINE FEW /HPF (None Seen); RBC,URINE 0-3 /HPF (0-3)
[2023-08-11 02:41] LABS: POTASSIUM 2.7 mmol/L (3.5-5.1)
[2023-08-11] MEDS ORDERED: NACL 0.9% 1,000 ML IV SCH ×2 (03:00→08:15)
[2023-08-11] MEDS ORDERED: POTASSIUM CHLORIDE 20 MEQ/PKT PACKET PO ONE ×2 (03:00→12:00)
[2023-08-11 08:06] LABS: HCG,QUAL RESULT NEGATIVE (NEGATIVE)
[2023-08-11] MEDS ORDERED: IPRATROPIUM/ALBUTEROL SULFATE 3 ML AMPUL.NEB (DUONEB) INH PRN (08:15)
[2023-08-11] MEDS ORDERED: MUPIROCIN 2% TOPICAL OINTMENT 22 GM NS PRN (08:15)
[2023-08-11] MEDS ORDERED: ACETAMINOPHEN 500 MG TABLET PO PRN ×2 (08:15→12:00)
[2023-08-11] MEDS ORDERED: POTASSIUM CHLORIDE 20 MEQ TABLET.ER PO PRN (08:15)
[2023-08-11] MEDS ORDERED: MAGNESIUM SULFATE 50 ML IV PRN (08:15)
[2023-08-11] MEDS ORDERED: cloNIDine HCL 0.2 MG TABLET PO PRN (08:15)
[2023-08-11] MEDS ORDERED: LORazepam 2 MG/ML VIAL IVP PRN (08:15)
[2023-08-11] MEDS ORDERED: DEXTROSE 50% JECT 50 ML DISP.SYRIN IVP PRN (08:15)
[2023-08-11] MEDS ORDERED: ZOLPIDEM TARTRATE 5 MG TABLET PO PRN (08:15)
[2023-08-11] MEDS ORDERED: INSULIN LISPRO SLIDING SCALE 100 UNITS/ML, 3 ML VIAL (humaLOG) SUBCUT PRN (08:15)
[2023-08-11] MEDS ORDERED: ONDANSETRON HCL 4 MG/2 ML VIAL IVP PRN (08:15)
[2023-08-11] MEDS ORDERED: traMADol HCL HCL 50 MG TABLET (ULTRAM) PO PRN (08:15)
[2023-08-11] MEDS ORDERED: lisinopriL 20 MG TABLET PO SCH (08:15)
[2023-08-11] MEDS ORDERED: DOCUSATE SODIUM 100 MG CAPSULE PO PRN (08:15)
[2023-08-11 08:29] VITALS: PULSE 108; O2SAT 93
[2023-08-11 08:42] LABS: HEMOGLOBIN A1C 11.3 % (<5.7)
[2023-08-11 08:52] LABS: THYROID STIMULATING HORMONE 1.04 uIu/mL (0.34-4.82)
[2023-08-11] MEDS ORDERED: METOPROLOL TARTRATE 50 MG TABLET PO SCH ×2 (09:00→21:00)
[2023-08-11] MEDS ORDERED: HEPARIN SODIUM,PORCINE 5,000 UNITS/ML VIAL SUBCUT SCH (09:00)
[2023-08-11 09:32] VITALS: BP_SYST 150; PULSE 98; RESP 20; TEMP 98.1; O2SAT 93
[2023-08-11] MEDS ORDERED: METOPROLOL TARTRATE 50 MG TABLET PO ONE (12:00)
[2023-08-11] MEDS ORDERED: INSULIN NPH/REGULAR 70-30, 100 UNITS/ML, 3 ML VIAL SUBCUT ONE (12:00)
[2023-08-11] MEDS ORDERED: cefTRIAXone 1 GM in D5W 50 ML IV ONE (14:00)
[2023-08-11] MEDS ORDERED: INSULIN NPH/REGULAR 70-30, 100 UNITS/ML, 3 ML VIAL SUBCUT SCH (17:00)
[2023-08-11] MEDS ORDERED: POTASSIUM CHLORIDE 20 MEQ/PKT PACKET PO SCH (21:00)
[2023-08-12] MEDS ORDERED: cefTRIAXone 1 GM in D5W 50 ML IV SCH (09:00)
== END 2023-08-11 09:34 | disposition left against medical advice (07) ==
LOC: SED 23:15 → UNDOADMIN 08-11 02:58 → STU 08-11 02:58
DX: E87.20 Acidosis, unspecified (principal); E87.6 Hypokalemia; N39.0 Urinary tract infection, site not specified; I13.0 Hypertensive heart and chronic kidney disease with heart failure and stage 1 through stage 4 chronic kidney disease, or unspecified chronic kidney disease; E11.22 Type 2 diabetes mellitus with diabetic chronic kidney disease; N18.9 Chronic kidney disease, unspecified; I50.9 Heart failure, unspecified; J45.909 Unspecified asthma, uncomplicated; K21.9 Gastro-esophageal reflux disease without esophagitis; R30.0 Dysuria; Z79.899 Other long term (current) drug therapy
CPT/HCPCS: 99285; 96365; 96361; 80061; 80048; 81001; 84703; 83037; 83880; 83735; 84443; 85025; 87086; 36415; 83605; 81000; 81015; J0696; J1815; J1956; J7060; G0378